=== PATIENT | male | born 1950 | race Caucasian/White ===

== ENCOUNTER → 2016-08-28 | Outpatient (CLI) | payer OTHER ==
[~2016-08-28] MED LIST: AMLO2.5T PO; HYDR-5688 PO; LISI10TA PO; PREG1CAP70 PO; TRAM-10 PO
[2016-08-28 13:59] LABS: BLOOD UREA NITROGEN 17 mg/dl (7-18); CALCIUM 9.5 mg/dl (8.5-10.1); CARBON DIOXIDE 31 mmol/L (21-32); CHLORIDE 102 mmol/L (98-107); GLUCOSE 108 mg/dl (70-99); POTASSIUM 4.6 mmol/L (3.5-5.1); SODIUM 139 mmol/L (136-145)
== END | disposition home or self-care (01) ==
LOC: C.LABMFLN 09:12
PROVIDERS: ATTEND Family Medicine
DX: G62.9 Polyneuropathy, unspecified (principal); E53.8 Deficiency of other specified B group vitamins; I10 Essential (primary) hypertension

== ENCOUNTER → 2016-12-25 | Outpatient (CLI) | payer OTHER ==
[2016-12-25 17:58] LABS: URINE APPEARANCE CLEAR (CLEAR); URINE BILIRUBIN NEG (NEG); URINE COLOR YELLOW; URINE NITRITE NEG (NEG); URINE SPECIFIC GRAVITY 1.023 (1.000-1.030); UROBILINOGEN NEG (NEG)
[2016-12-25 18:02] LABS: MANUAL MICROSCOPIC REQUIRED? NO; REVIEW REQ? NO
== END | disposition home or self-care (01) ==
LOC: C.LABMFLN 14:28
PROVIDERS: ATTEND Family Medicine
DX: R31.29 Other microscopic hematuria (principal)

== ENCOUNTER → 2017-06-04 | Outpatient (CLI) | payer OTHER ==
[2017-06-04 13:20] LABS: BLOOD UREA NITROGEN 14 mg/dl (7-18); CARBON DIOXIDE 30 mmol/L (21-32); CREATININE 1.34 mg/dl (0.60-1.40); GLUCOSE 122 mg/dl (70-99); POTASSIUM 4.3 mmol/L (3.5-5.1); SODIUM 139 mmol/L (136-145)
== END | disposition home or self-care (01) ==
LOC: C.LABMFLN 08:43
PROVIDERS: ATTEND Family Medicine
DX: I10 Essential (primary) hypertension (principal)

== ENCOUNTER 2021-05-16 09:17 | Inpatient (IN) ==
--- NOTE | 2021-04-29 10:36 | PAT Medication Instructions ---
Medication Instructions Date of Service April 29, 2021 Home Medications Medication Instructions Recorded apixaban 2.5 mg tablet 2.5 mg PO Q12H #180 tab 11/24/20 tramadol 50 mg tablet 50 mg PO Q8H PRN #180 tab 01/19/21 pregabalin 150 mg capsule 150 mg PO TID #90 cap 01/21/21 apixaban 2.5 mg tablet 2.5 mg PO Q12H tramadol 50 mg tablet 50 mg PO Q8H PRN pregabalin 150 mg capsule 150 mg PO TID amlodipine 2.5 mg tablet 2.5 mg PO QAM cholecalciferol (vitamin D3) 50 mcg (2,000 unit) tablet 50 mcg PO QAM cyanocobalamin (vitamin B-12) 500 mcg tablet 500 mcg PO QAM lisinopril 10 mg-hydrochlorothiazide 12.5 mg tablet 1 tab PO QAM vitamin B comp and C no.3 15 mg-10 mg-50 mg-5 mg-300 mg capsule (B Complex Plus Vitamin C) 1 cap PO QAM ASK your prescriber and surgeon apixaban 2.5 mg tablet 2.5 mg PO Q12H DO NOT take the morning of surgery cholecalciferol (vitamin D3) 50 mcg (2,000 unit) tablet 50 mcg PO QAM cyanocobalamin (vitamin B-12) 500 mcg tablet 500 mcg PO QAM lisinopril 10 mg-hydrochlorothiazide 12.5 mg tablet 1 tab PO QAM vitamin B comp and C no.3 15 mg-10 mg-50 mg-5 mg-300 mg capsule (B Complex Plus Vitamin C) 1 cap PO QAM Take morning of surgery With a small sip of water, OTHERWISE NOTHING TO EAT OR DRINK AFTER MIDNIGHT: tramadol 50 mg tablet 50 mg PO Q8H PRN (okay to take up to 4 hours prior to surgery if needed) pregabalin 150 mg capsule 150 mg PO TID amlodipine 2.5 mg tablet 2.5 mg PO QAM Take evening before surgery tramadol 50 mg tablet 50 mg PO Q8H PRN (if needed) pregabalin 150 mg capsule 150 mg PO TID Other Notes If you have any questions please call us at [phone] or [phone] or [phone] or [phone]
--- NOTE | 2021-05-02 13:43 | Anesthesiology Consultation ---
Date of Service May 02, 2021 Assessment & Plan (1) Encounter for pre-operative examination: Chart Review Chart Review: Acceptable Risk for Surgery (pending surgeon ordered PCP clearance 05/03/21 and preop Covid testing ) and Patient seen in Pre Admission Testing - Awaiting surgeon ordered PCP clearance 05/03/21 Per PAT appt on 05/02/21, patient denies any recent travel or large group activities. No known Covid positive exposures or Covid related symptoms. No known Covid infection in the past 90 days. Pt is NOT vaccinated for Covid. Preop Covid testing scheduled 05/12/21 = will await results. Educated on importance of self quarantining, social distancing and wearing mask in public for the patient one week prior to surgery and after Covid testing done Consults Requested Pre-Anesthesia Teaching/Discussion Notes: Instructed NPO after midnight before surgery,except medications with 15 cc of water. Medication instructions provided according to the PAT guidelines. History Surgery Operation Date: 05/16/21 11:30 Proposed Procedures p L2-S1 Revision Decompression Fusion, Spinal Cord Monitoring - Brandon Ramires DO Height/Weight Height: 5 ft 10.5 in Weight: 128.5 kg Allergies Allergy/AdvReac Type Severity Reaction Status Date / Time oxycodone [From OxyContin] Allergy Severe breathing Verified 04/27/21 10:24 issues Medications Home Medications Medication Instructions Recorded Confirmed Last Taken apixaban 2.5 mg tablet 2.5 mg PO Q12H #180 tab 11/24/20 04/27/21 Unknown tramadol 50 mg tablet 50 mg PO Q8H PRN #180 tab 01/19/21 04/27/21 Unknown pregabalin 150 mg capsule 150 mg PO TID #90 cap 01/21/21 04/27/21 Unknown amlodipine 2.5 mg tablet 2.5 mg PO QAM 04/27/21 04/27/21 Unknown cholecalciferol (vitamin D3) 50 50 mcg PO QAM 04/27/21 04/27/21 Unknown mcg (2,000 unit) tablet cyanocobalamin (vitamin B-12) 500 500 mcg PO QAM 04/27/21 04/27/21 Unknown mcg tablet lisinopril 10 1 tab PO QAM 04/27/21 04/27/21 Unknown mg-hydrochlorothiazide 12.5 mg tablet vitamin B comp and C no.3 15 mg-10 1 cap PO QAM 04/27/21 04/27/21 Unknown mg-50 mg-5 mg-300 mg capsule (B Complex Plus Vitamin C) Past Medical History Medical History AAA (abdominal aortic aneurysm) Per renal ultrasound 12/22/20- "proximal abdominal aorta is ectatic/borderline dilated with AP diameter of 3.0cm" History of kidney stones History of pulmonary 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 No device indicated per patient . Osteoarthritis Perinephric hematoma Hx perinephric hematoma 03/23 Eliquis 04/2020 (days after starting Eliquis for PE) Improving on recent imaging (02/2021) per nephro Pulmonary hypertension Pulm HTN noted on 05/04/20 ECHO (PASP >39mmg) (diagnosed with PE at the time); repeat ECHO 11/23/20 - "cannot esimated RVSP due to insufficient tricuspid regurgitant jet" Renal cyst Stage 3b chronic kidney disease Follows with Dr. Cadena Baseline creat 1.5-1.7 per nephro 03/30/21 Tinnitus Past Family History Family History Father Diabetes Stroke Sister Breast cancer Brother Cancer Other No family history of adverse response to anesthesia Past Surgical History Surgical History History of ankle surgery Rt History of back surgery History of colonoscopy History of removal of cyst S/P cervical spinal fusion x 3 S/P IVC filter 05/07/20 Dr. Millie Pandey- Infrarenal IVC filter (has since been removed) Past Anesthesia History No Hx of Anesthesia Complications and No Family Hx of Anesthesia Complications History of PONV No Hx of PONV and No Hx of Motion Sickness Social History Smoking Status: Never smoker Do You Dip or Chew Tobacco: No Hx Alcohol Use: No Hx Substance Use: No substance use type: does not use Review of Systems Hx of blood transfusion - secondary to perinephric hematoma Hx of PE 04/2020 Patient denies chest pain, shortness of breath at rest, reflux, cough, wheezing, palpitations. No hx of seizures, stroke, SD. Physical Exam Vital Signs VITALS BP 108/72 P 97 TEMP 99.0 SP02 94% RESP 16 Constitutional no acute distress ENMT Mouth: no TMJ clicking Thyromental Distance: > or= 3.5 Finger Breadths (4.0) Mallampati Class: III Missing molars Neck neck extension not limited Respiratory normal respiratory effort; no respiratory distress Auscultation: lungs clear to auscultation bilaterally; no wheezes Cardiovascular Rate/Rhythm: regular rate and regular rhythm Heart Sounds: no murmur Vessels: no carotid bruit Musculoskeletal Spine: no pain with cervical ROM Extremities: extremities normal to inspection Psychiatric Orientation: alert Lab Results Anesthesia Preop Results Results Anesthesia Widget: WBC 11.46 K/uL (4.8-10.8) H 05/02/21 Hgb 14.9 g/dL (14.0-18.0) 05/02/21 Hct 45.4 % (42-52) 05/02/21 Plt 255 K/uL (130-400) 05/02/21 Na 138 mmol/L (136-145) 05/02/21 K 4.9 mmol/L (3.5-5.1) 05/02/21 Cl 101 mmol/L (98-107) 05/02/21 CO2 30 mmol/L (21-32) 05/02/21 BUN 24 mg/dl (6-23) H 05/02/21 Creat 1.68 mg/dl (0.6-1.4) H 05/02/21 Glucose Level 96 mg/dl (70-99(Fasting)) 05/02/21 PT 10.8 Seconds (9.0-12.0) 05/02/21 PTT 31.1 Seconds (21.0-31.0) H 05/02/21 INR 1.0 (0.9-1.1) 05/02/21 Urine Color Dark Yellow 05/02/21 Urine Appearance Clear (Clear) 05/02/21 Urine pH 6.0 (4.5-7.5) 05/02/21 Urine Specific [place] 1.021 (1.000-1.030) 05/02/21 Urine Protein Negative (Negative) 05/02/21 Urine Glucose (UA) Negative (Negative) 05/02/21 Urine Ketones Negative (Negative) 05/02/21 Urine Blood Negative (Negative) 05/02/21 Urine Nitrite Negative (Negative) 05/02/21 Urine Bilirubin Negative (Negative) 05/02/21 Urine Urobilinogen Negative (Negative) 05/02/21 Urine Leukocyte Esterase Negative (Negative) 05/02/21 Blood Type O Positive 05/02/21 Antibody Screen NEGATIVE 05/02/21 Lab Comments: Elevated creatinine- CKD- follows with nephro- baseline creat 1.5-1.7 Testing Electrocardiogram Date: 10/01/20 SR at 97bpm. Borderline right axis deviation. Chest X-Ray Date: 05/02/21 Findings: + NAD Echocardiogram Date: 11/23/20 EF: 55-60% LV Function: normal RWMA: + none Other Findings: no LVH Valvular Disease: + no significant valvular disease Cannot estimate RVSP due to insufficient tricuspid regurgitant jet. Other Testing Abdomen MRI 03/01/21= Multiple cysts are seen in the right greater than left kidneys. Nonenhancing soft tissue density about the right kidney inferior pole likely reflects residual findings of the right subcapsular hematoma. Hepatic steatosis.
[~2021-05-16 09:17] MED LIST changes: +ACETAMINOPHEN 500 MG TAB PO SCH; -AMLO2.5T PO; +CeleBREX 200 MG CAP PO SCH; +GABAPENTIN 300 MG CAP PO SCH; -HYDR-5688 PO; -LISI10TA PO; +LR 15ML/HR IV SCH; -PREG1CAP70 PO; -TRAM-10 PO
--- NOTE | 2021-05-16 11:04 | History & Physical Bridge Note ---
Date of Service May 16, 2021 History & Physical Bridge Note I have examined the patient, reviewed the History & Physical and in the interval since the performance of the History & Physical I have noted the following changes of clinical significance: no changes noted
--- NOTE | 2021-05-16 11:05 | History & Physical Report ---
Date of Service May 16, 2021 Assessment & Plan (1) Neurogenic claudication due to lumbar spinal stenosis: Plan: L2-S1 revision decompression and fusion History of Present Illness Chief Complaint: Back and bilateral leg pain Primary Care Provider: Bijan Hernandez MD This is a 70-year-old male who presents with back and bilateral leg pain after failing course of nonoperative care is here for surgical intervention. Allergies Allergy/AdvReac Type Severity Reaction Status Date / Time oxycodone [From OxyContin] Allergy Severe breathing Verified 05/16/21 09:50 issues Home Medications Medication Instructions Recorded Confirmed Type apixaban 2.5 mg tablet 2.5 mg PO Q12H #180 tab 11/24/20 05/16/21 Rx tramadol 50 mg tablet 50 mg PO Q8H PRN #180 tab 01/19/21 05/16/21 Rx pregabalin 150 mg capsule 150 mg PO TID #90 cap 01/21/21 05/16/21 Rx amlodipine 2.5 mg tablet 2.5 mg PO QAM 04/27/21 05/16/21 History cholecalciferol (vitamin D3) 50 50 mcg PO QAM 04/27/21 05/16/21 History mcg (2,000 unit) tablet cyanocobalamin (vitamin B-12) 500 500 mcg PO QAM 04/27/21 05/16/21 History mcg tablet lisinopril 10 1 tab PO QAM 04/27/21 05/16/21 History mg-hydrochlorothiazide 12.5 mg tablet vitamin B comp and C no.3 15 mg-10 1 cap PO QAM 04/27/21 05/16/21 History mg-50 mg-5 mg-300 mg capsule (B Complex Plus Vitamin C) Past Med/Surg History Medical History (Updated 05/16/21 @ 11:05 by Brandon Ramires DO) AAA (abdominal aortic aneurysm) Per renal ultrasound 12/22/20- "proximal abdominal aorta is ectatic/borderline dilated with AP diameter of 3.0cm" History of kidney stones History of pulmonary embolism Dx 04/2020; 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 No device indicated per patient . Osteoarthritis Perinephric hematoma Hx perinephric hematoma 03/23 Eliquis 04/2020 (days after starting Eliquis for PE) Improving on recent imaging (02/2021) per nephro Pulmonary hypertension Pulm HTN noted on 05/04/20 ECHO (PASP >39mmg) (diagnosed with PE at the time); repeat ECHO 11/23/20 - "cannot esimated RVSP due to insufficient tricuspid regurgitant jet" Renal cyst Stage 3b chronic kidney disease Follows with Dr. Cadena Baseline creat 1.5-1.7 per nephro 03/30/21 Tinnitus Surgical History History of ankle surgery Rt History of back surgery History of colonoscopy History of removal of cyst S/P cervical spinal fusion x 3 S/P IVC filter 05/07/20 Dr. 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
[2021-05-16] MEDS ORDERED: ATROPINE SULFATE 0.1 MG/ML 10ML SYR IV PRN (11:10)
[2021-05-16] MEDS ORDERED: ONDANSETRON INJ 2 MG/ML 2 ML VIAL IV PRN ×2 (11:10→16:06)
[2021-05-16] MEDS ORDERED: HYDROmorphone INJ 2 MG/ML SYR/VIAL IV PRN (11:10)
[2021-05-16] MEDS ORDERED: ePHEDrine sulfate 50 MG/ML AMP IV PRN (11:10)
[2021-05-16] MEDS ORDERED: PROPOFOL IV EMULSION 10 MG/ML 20 ML VIAL IV ONE (11:28)
[2021-05-16] MEDS ORDERED: ceFAZolin 330 MG/ML 1 GM VIAL ONE (11:28)
[2021-05-16] MEDS ORDERED: DEXAMETHASONE SOD INJ 4 MG/ML VIAL ONE (11:28)
[2021-05-16] MEDS ORDERED: ROCURONIUM BROMIDE 10 MG/ML 5 ML VIAL IV ONE ×6 (11:28→13:37)
[2021-05-16] MEDS ORDERED: MIDAZOLAM HCL 1 MG/ML 2ML VIAL ONE (11:28)
[2021-05-16] MEDS ORDERED: ONDANSETRON INJ 2 MG/ML 2 ML VIAL ONE (11:28)
[2021-05-16] MEDS ORDERED: fentaNYL citrate 100 MCG/2 ML VIAL ONE (11:28)
[2021-05-16] MEDS ORDERED: EPINEPHrine INJ 1 MG/ML AMP ONE (11:32)
[2021-05-16] MEDS ORDERED: BUPIVACAINE 0.5 % 5 MG/1 ML MPF 30ML VIAL ONE (11:32)
[2021-05-16] MEDS ORDERED: FLOSEAL HEMOSTATIC MATRIX 10ML TOP ONE (12:37)
[2021-05-16] MEDS ORDERED: HYDROmorphone INJ 2 MG/ML SYR/VIAL ONE (12:51)
[2021-05-16] MEDS ORDERED: GLYCOPYRROLATE 0.2 MG/ML VIAL ONE (13:36)
[2021-05-16] MEDS ORDERED: NEOSTIGMINE METHYLSULFATE 1 MG/ML 10ML VIAL ONE (13:36)
--- NOTE | 2021-05-16 14:33 | Operative Report ---
Post Operative Report Pre & Post Diagnosis Operation Date: 05/16/21 11:15 Pre-Op Diagnosis: Spinal Stenosis Lumbar Region Post-Op Diagnosis: Spinal Stenosis Lumbar Region I identified the patient and participated in the time-out.: Yes Procedure Operation Date: 05/16/21 11:15 Actual Procedures #1 lumbar decompression L2-L3, L3-L4, L4-L5 and L5-S1. #2 posterior spinal fusion L2-S1. #3 placement posterior segmental instrumentation L2-S1. #4 interbody fusion L3-L4. #5 placement of titanium 13 x 26 mm cage at L3-L4. #6 placement locally harvested morselized autograft in the posterior gutters. #7 placement infuse collagen sponge, master graft in the posterior lateral gutters and I factor in the interbody space. Surgeon Brandon Ramires, DO Counselor Dormitory Sherice Virgen Estimated Blood Loss 700 Findings See Below Patient is 5 foot 10 inches tall weighing over 129 kg with a BMI in excess of 40. The patient's body habitus did contribute to significant technical difficulty requiring her deepest retractors longus instruments in order to perform his procedure. This at least 50% increased operative time. Specimens None Indications This is a 70-year-old male who presents with above-mentioned diagnosis after failing course of nonoperative care is here for the above-mentioned procedure. Description of Procedure Patient was met with identified informed consent obtained. Patient was then taken to the operative suite underwent ablation placed in a prone position on the [facility] top Missael frame. All bony prominences well-padded eyes inspected to ensure no external pressure placed upon the. This point the lumbar spine was prepped and draped in a sterile fashion. Sharp dissection with the assistance of Bovie cautery was performed down to and exposing the lamina and transverse processes of L2 L3-L4-L5 and sacral ala bilaterally. From caudal to cephalad fashion revision decompression at L5 L4 L3 and L2 was performed including medial facetectomies and foraminotomies addressing severe spinal stenosis most impressive at the L3-L4 level. Pedicle screws then placed in L2- L3 L4-5 and S1 levels bilaterally. The appropriate sized sana placed. Bilateral transforaminal portion of right complete discectomy of L3-L4 was performed endplates curetted to subcortical being bone and a 13 x 26 mm titanium cage filled with I factor tapped in position. The rods then locked in final position bilaterally. The transverse processes of L2-L3 L4-5 and sacral ala burred to subcortical bleeding bone. Infuse collagen sponge mass graft local autograft was placed in the posterior gutters. 15 round VALARIE drain inserted. The incision was then closed with 1 Vicryl in the fascia 2-0 Vicryl subcutaneously and 4 Monocryl for final skin closure. Steri-Strip sterile dressing was placed. Patient will continue PACU stable condition. Please note spinal combined was utilized at the procedure no changes noted. Lastly Sherice Virgen was present at the entire surgery and while the patient positioning complex portions of the surgery and final skin closure. I attest to the content of the Intraoperative Record and any orders documented therein. Any exceptions are noted below.
--- NOTE | 2021-05-16 14:43 | Fluoroscopy Report ---
FL lumbar spine 2-3V HISTORY: 70 years-old Male L2-S1 DFI chronic low back pain COMPARISON: None. TECHNIQUE: 4 spot fluoroscopic images of the lumbar spine were obtained utilizing 41.5 seconds fluoro scopy time FINDINGS: Posterior interbody sana and screw fusion hardware is noted at what appears to be the L2-S1 levels. Di scectomy changes are noted appears to be the L3-L4 intervertebral disc space. A surgical sponge proje cts over the mid sacrum. The hardware appears intact. IMPRESSION: Fluoroscopic assistance as above. ACT 112: Negative or not required by law. The above report was generated using voice recognition software. It may contain grammatical, syntax o r spelling errors. Electronically signed by: Jose Luis Mistry M.D. 05/16/2021 2:42 PM
[2021-05-16] MEDS: fentaNYL citrate 100 MCG/2 ML VIAL IV PRN ×2 (15:13→15:19)
--- NOTE | 2021-05-16 15:38 | Anesthesiology Progress Note ---
Date of Service May 16, 2021 Anesthesia Post Procedure Vital Signs Vital Signs: Temp Pulse Pulse Resp BP BP Pulse Ox 05/16/21 15:30 36.2 C L 86 12 103/67 99 05/16/21 15:20 83 13 103/66 100 05/16/21 15:10 81 12 113/68 97 05/16/21 15:00 87 12 91/60 L 99 05/16/21 14:54 36.0 C L 92 H 14 103/65 98 05/16/21 09:43 36.8 C 97 H 20 117/85 96 Pain Intensity Right Lower Back: Pain Intensity: 2 Back: Pain Intensity: 4 Transfer of Care Handoff Completed per policy Notes Mental Status: alert / awake / arousable and participated in evaluation Patient Amnestic to Procedure: Yes Nausea / Vomiting: adequately controlled Pain: adequately controlled Airway Patency, RR, SpO2: stable & adequate BP & HR: stable & adequate Hydration State: stable & adequate Anesthetic Complications: no major complications apparent and Pt Satisfied with anesthetic care
[2021-05-16] MEDS ORDERED: DO NOT ADMINISTER PNEUMOCOCCAL VACCINE PRN (16:06)
[2021-05-16] MEDS ORDERED: hydrOXYzine HCl 25 MG TAB PO PRN (16:06)
[2021-05-16] MEDS ORDERED: HYDROmorphone INJ 1 MG/ML SYRINGE IV PRN (16:06)
[2021-05-16] MEDS ORDERED: NALOXONE HCL 0.4 MG/1 ML VIAL/CARP IV PRN (16:06)
[2021-05-16] MEDS ORDERED: FAMOTIDINE 20 MG TAB PO PRN (16:06)
[2021-05-16] MEDS ORDERED: HYDROmorphone INJ 0.5 MG/0.5 ML SYR IV PRN (16:06)
[2021-05-16] MEDS ORDERED: METOCLOPRAMIDE HCL INJ 5 MG/ML 2 ML VIAL IV PRN (16:06)
[2021-05-16] MEDS ORDERED: DO NOT ADMINISTER FLU VACCINE PRN (16:06)
[2021-05-16] MEDS ORDERED: ACETAMINOPHEN 1,000 MG/100 ML VIAL IV PRN (16:06)
[2021-05-16] MEDS ORDERED: bisacodyL 10 MG SUPP PR PRN (16:06)
[2021-05-16] MEDS ORDERED: SOD PHOSPHATE/SOD BIPHOSPHATE ENEMA 132 ML BTL PR PRN (16:06)
[2021-05-16] MEDS ORDERED: MAGNESIUM HYDROXIDE SUSP 30 ML UDC PO PRN (16:06)
[2021-05-16] MEDS ORDERED: ACETAMINOPHEN 500 MG TAB PO PRN (16:06)
[2021-05-16] MEDS ORDERED: HYDROCODONE/ACETAMOPHEN 5/325MG TAB PO PRN (16:06)
[2021-05-16] MEDS ORDERED: LORazepam 2 MG/1 ML VIAL IV PRN (16:06)
[2021-05-16] MEDS ORDERED: diphenhydrAMINE Capsule 25 MG CAP PO PRN (16:06)
[2021-05-16] MEDS ORDERED: ALUMINUM/MAGNESIUM SUSP 30 ML UDC PO PRN (16:06)
[2021-05-16] MEDS ORDERED: ONDANSETRON 4 MG OD TAB PO PRN (16:06)
[2021-05-16] MEDS ORDERED: LORazepam 0.5 MG TAB PO PRN (16:06)
[2021-05-16] MEDS ORDERED: PROMETHAZINE HCL 12.5 MG in SODIUM CHLORIDE 0.9% 50 ML IV PRN (16:06)
--- NOTE | 2021-05-16 17:07 | Hospitalist Consultation ---
Date of Consultation May 16, 2021 Assessment & Plan (1) Neurogenic claudication due to lumbar spinal stenosis: L2 S1 revision decompression fusion Dr. Ramires 05/16/2021 patient will have his VALARIE drain monitored by Dr. Ramires pain control also per Dr. Ramires PT OT also (2) Hypertension, benign: Patient typically takes amlodipine low-dose and lisinopril Prill hydrochlorothiazide. His blood pressure is low postoperatively we will delay the start of these medications until the . If blood pressure does rise on 05/17 we will use as needed medications to fill in (3) History of pulmonary embolism: Patient has treated a acute pulmonary believes him with 6 months of therapeutic dosing of apixaban now he is kept on therapy with a more preventative dose. His primary care physician wishes to resume this when hemostasis is felt to be appropriate by primary team in 48 to 72 hours. 2.5 twice daily of apixaban (4) CKD (chronic kidney disease) stage 3, GFR 30-59 ml/min: Patient suffers from chronic kidney disease this has been stable preoperatively certainly with his volume shifts we will watch this in the postoperative setting Patient did have a perinephric hematoma after starting his anticoagulation which has been resolving over time (5) DVT prophylaxis: Given his history we will resume his chemoprophylaxis is soon as possible however will use external means until his apixaban is restarted Patient does not use any noninvasive positive pressure device for sleep apnea. Patient does not take any medications for prediabetes nor follow a carbohydrate conservative diet. Patient has a history of abdominal aortic aneurysm which may just be aortic ectasia History of Present Illness Attending Physician: Brandon Ramires DO History of Present Illness 70-year-old male underwent L2 S1 root revision decompression fusion by Dr. Ramires on 05/16/2021. Preoperatively he was seen by his family doctor and felt he was wrist optimized for surgery. Patient does suffer from prediabetes which is diet controlled sleep apnea while at home device hypertension and pulmonary hypertension. He is chronically on apixaban after having pulmonary believes him is after cervical spinal surgery. Patient has chronic longstanding neuropathy of his feet for which he takes pregabalin. Postoperatively he was comfortable his blood pressure was slightly low his pain was in good control only at the operative site his lower leg pain which was the main cause of his need for surgery had completely resolved. Allergies Allergy/AdvReac Type Severity Reaction Status Date / Time oxycodone [From OxyContin] Allergy Severe breathing Verified 05/16/21 09:50 issues Home Medications Medication Instructions Recorded Confirmed Type apixaban 2.5 mg tablet 2.5 mg PO Q12H #180 tab 11/24/20 05/16/21 Rx tramadol 50 mg tablet 50 mg PO Q8H PRN #180 tab 01/19/21 05/16/21 Rx pregabalin 150 mg capsule 150 mg PO TID #90 cap 01/21/21 05/16/21 Rx amlodipine 2.5 mg tablet 2.5 mg PO QAM 04/27/21 05/16/21 History cholecalciferol (vitamin D3) 50 50 mcg PO QAM 04/27/21 05/16/21 History mcg (2,000 unit) tablet cyanocobalamin (vitamin B-12) 500 500 mcg PO QAM 04/27/21 05/16/21 History mcg tablet lisinopril 10 1 tab PO QAM 04/27/21 05/16/21 History mg-hydrochlorothiazide 12.5 mg tablet vitamin B comp and C no.3 15 mg-10 1 cap PO QAM 04/27/21 05/16/21 History mg-50 mg-5 mg-300 mg capsule (B Complex Plus Vitamin C) Patient History Medical History (Updated 05/16/21 @ 17:04 by Pedro Meneses MD) AAA (abdominal aortic aneurysm) Per renal ultrasound 12/22/20- "proximal abdominal aorta is ectatic/borderline dilated with AP diameter of 3.0cm" History of kidney stones History of pulmonary embolism Dx 04/2020; 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 No device indicated per patient . Osteoarthritis Perinephric hematoma Hx perinephric hematoma 03/23 Eliquis 04/2020 (days after starting Eliquis for PE) Improving on recent imaging (02/2021) per nephro Pulmonary hypertension Pulm HTN noted on 05/04/20 ECHO (PASP >39mmg) (diagnosed with PE at the time); repeat ECHO 11/23/20 - "cannot esimated RVSP due to insufficient tricuspid regurgitant jet" Renal cyst Stage 3b chronic kidney disease Follows with Dr. Cadena Baseline creat 1.5-1.7 per nephro 03/30/21 Tinnitus Surgical History History of ankle surgery Rt History of back surgery History of colonoscopy History of removal of cyst S/P cervical spinal fusion x 3 S/P IVC filter 05/07/20 Dr. 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 Beliefs That Will Affect Care: None marital status: / Current Living Situation: Alone Feels Safe at Home: Yes Safety Concerns: Feels Safe At This Time Childhood Exposure to Second-Hand Smoke: No Seatbelt Use: always Sunscreen Use: No Assistive Devices: Glasses Review of Systems Review of Systems: Mild distress and fatigue only back pain is at the surgical site is of a VALARIE draining no headache, no visual changes no speech or swallowing issues no chest pain, pressure or palpitations no shortness of breath, cough or wheezes no abdominal pain, nausea or vomiting, diarrhea or constipation no dysuria, hematuria or frequency no focal joint pain or swelling Central lower lumbar nonradicular back pain Operative wound is dressed and there is a VALARIE that is draining serosanguineous fluid no focal signs of weakness patient has prehospital bilateral lower extremity neuropathy to about his mid lower leg this is at his typical usual state no complaints of anxiety or depression.. Physical Exam Physical Exam: The patient appeared well nourished and normally developed. Vital signs as documented. Head exam is normocephalic atraumatic Neck is without JVD, thyromegaly, or carotid bruits. Lungs are clear to auscultation, no focal loss of breath sounds Cardiac exam, Rhythm is regular.. No murmurs, rubs or gallops. Abdominal exam reveals normal bowel sounds, soft non tender, no masses Extremities are nonedematous and both pedal pulses are present Neurologic exam is alert and oriented, no focal loss of strength or referral neuropathy is present Skin is without bruises or rashes exception of the operative site which is dressed and I cannot visualize it consists difficult to roll the patient postoperatively Psychologically is without concerns for anxiety or depression.. Results & Data Results & Data ([facility]) Vital Signs (Past 12 Hours) Vital Signs Temp Pulse Pulse Resp BP BP Pulse Ox 05/16/21 16:31 97.5 F L 90 16 108/68 95 05/16/21 16:00 97.9 F 82 16 107/68 97 05/16/21 15:50 83 13 95/59 L 95 05/16/21 15:40 78 12 107/65 99 05/16/21 15:30 97.2 F L 86 12 103/67 99 05/16/21 15:20 83 13 103/66 100 05/16/21 15:10 81 12 113/68 97 05/16/21 15:00 87 12 91/60 L 99 05/16/21 14:54 96.8 F L 92 H 14 103/65 98 05/16/21 09:43 98.2 F 97 H 20 117/85 96 PG Care Time/CCT Total # of Minutes Spent Total Time Spent with Patient: Total time spent is greater than 50% in coordination of care (as documented) at patient's floor/unit and/or counseling patient: Coding Level of Care Code 43800 Inpt Consult Level 3 Diagnoses Hypertension, benign I10 History of pulmonary embolism Z86.711 CKD (chronic kidney disease) stage 3, GFR 30-59 ml/min N18.30 Neurogenic claudication due to lumbar spinal stenosis M48.062 DVT prophylaxis Z29.9
[2021-05-16] MEDS: LACTATED RINGER'S 1,000 ML IV SCH (19:12)
[2021-05-16] MEDS: traMADol HCL 50 MG TABLET PO PRN (20:54)
[2021-05-16] MEDS: PREGABALIN 150 MG CAP PO SCH (20:54)
[2021-05-16] MEDS: ceFAZolin 2000MG 2,000 MG/15 ML SYR IV SCH (20:54)
[2021-05-16] MEDS: DOCUSATE SODIUM/SENNA 50/8.6MG TAB PO SCH (20:57)
[2021-05-17] MEDS: LACTATED RINGER'S 1,000 ML IV SCH ×2 (01:06→07:54)
[2021-05-17] MEDS: ceFAZolin 2000MG 2,000 MG/15 ML SYR IV SCH (05:38)
[2021-05-17] MEDS: POLYETHYLENE (MIRALAX) 17 GM PACK PO SCH ×3 (05:39→17:13)
[2021-05-17 06:55] LABS: Basophils # (auto) 0.01 K/uL (0-0.2); Basophils % (auto) 0.1 %; Hematocrit (blood only) 33.2 % (42-52); Hemoglobin 11.1 g/dL (14.0-18.0); Immature Granulocytes # (auto) 0.04 K/uL (0.00-0.02); Immature Granulocytes % (auto) 0.3 %; Lymphocytes # (auto) 1.14 K/uL (1.2-3.4); Lymphocytes % (auto) 7.8 %; Mean Corpuscular Hemoglobin 31.6 pg (25-34); Mean Corpuscular Hgb Conc 33.4 g/dL (32-36); Mean Corpuscular Volume 94.6 fL (80-100); Mean Platelet Volume 10.1 fL (7.4-10.4); Monocytes # (auto) 0.75 K/uL (0.11-0.59); Monocytes % (auto) 5.2 %; Neutrophils # (auto) 12.62 K/uL (1.4-6.5); Neutrophils % (auto) 86.6 %; Platelet Count 234 K/uL (130-400); RDW Coefficient of Variation 13.8 % (11.5-14.5); RDW Standard Deviation 47.3 fL (36.4-46.3); Red Blood Count 3.51 M/uL (4.7-6.1); White Blood Count 14.56 K/uL (4.8-10.8)
[2021-05-17 07:13] LABS: BUN Creatinine Ratio 15.3 (10-20); Calcium 8.5 mg/dl (8.5-10.1); Creatinine Clr Calc Pharmacy 60.5 ml/min; Est GFR (African American) 51.4 ml/min; Est GFR (Non-African American) 44.3 ml/min; Potassium 4.9 mmol/L (3.5-5.1)
[2021-05-17] MEDS: dexAMETHasone 6 MG in SYRINGE 0 ML IV SCH (08:08)
[2021-05-17] MEDS: VITAMIN B COMPLEX TAB PO SCH (08:09)
[2021-05-17] MEDS: ASCORBIC ACID 500 MG TAB PO SCH (08:09)
[2021-05-17] MEDS: CYANOCOBALAMIN (B-12) 500 MCG TABLET PO SCH (08:09)
[2021-05-17] MEDS: CHOLECALCIFEROL 1,000 UNITS 25 MCG TAB PO SCH (08:09)
[2021-05-17] MEDS: PREGABALIN 150 MG CAP PO SCH ×2 (08:11→20:07)
[2021-05-17] MEDS ORDERED: amLODIPine BESYLATE 5 MG TAB PO SCH (09:00)
[2021-05-17] MEDS ORDERED: LISINOPRIL/HCTZ 10/12.5MG TAB PO SCH (09:00)
[2021-05-17] MEDS ORDERED: NON-FORMULARY MEDICATION (Vitamin B Comp And C No.3 [B Complex Plus Vitamin C] 15-10-50-5- PO SCH (09:00)
[2021-05-17] MEDS ORDERED: SODIUM CHLORIDE 0.9% 1000ML 1,000 ML IV SCH (11:00)
--- NOTE | 2021-05-17 11:43 | Orthopedic Progress Note ---
Date of Service May 17, 2021 Assessment & Plan (1) Neurogenic claudication due to lumbar spinal stenosis: Plan: At this time we will continue physical therapy monitor his VALARIE output anticipate discharge home the next few days. We did discussed restarting Eliquis. He has been on this for over a year for a PE. 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 Otherwise he is not necessarily required to be on this medication. This point he prefer to stay off of it. Admission and Anticipated Discharge Date Admission Date: May 16, 2021 Subjective Back pain is controlled leg symptoms markedly improved Physical Exam Physical Exam: On exam he is in the chair at the bedside. Is good strength testing. Appears comfortable. Results & Data ([facility]) Vital Signs (Past 12 Hours) Vital Signs Temp Pulse Resp BP Pulse Ox 05/17/21 07:06 36.5 C 103 H 16 99/62 L 96 05/17/21 04:00 36.8 C 102 H 18 100/64 99
--- NOTE | 2021-05-17 14:32 | Hospitalist Progress Note ---
Date of Service May 17, 2021 Assessment & Plan (1) Neurogenic claudication due to lumbar spinal stenosis: Plan: L2 S1 revision decompression fusion Dr. Ramires VALARIE drain monitored by Dr. Ramires Recommend postoperative pain control, PT/OT, incentive spirometryall at the discretion of primary team Recommend removal of Garcia to encourage ambulation (2) Hypotension: Plan: BP slightly low this morning at 99/62 but patient asymptomatic Hold antihypertensive medications (lisinopril/HCTZ, Norvasc) Initiate gentle IV hydration Follow BP closely (3) Leukocytosis: Plan: 14.56likely steroid-induced (4) Hypertension, benign: Plan: Holding antihypertensive agents (lisinopril/HCTZ, Norvasc) as outlined above due to marginal hypotension (5) History of pulmonary embolism: Plan: Treated for acute PE with treatment dose Eliquis. Has now been on prevention dosing given this was an unprovoked event Recommend resumption of Eliquis JOSSELIN when hemostasis is felt to be appropriate by primary team For now, recommend SCDs and ambulation (6) CKD (chronic kidney disease) stage 3, GFR 30-59 ml/min: Plan: Patient did have a perinephric hematoma after starting his anticoagulation which has been resolving over time Creatinine 1.4-1.7 at baseline. Currently 1.5 (7) DVT prophylaxis: Plan: Given his history we will resume his chemoprophylaxis is soon as possible however will use external means until his apixaban is restarted Patient does not use any noninvasive positive pressure device for sleep apnea. Patient does not take any medications for prediabetes nor follow a carbohydrate conservative diet. Patient has a history of abdominal aortic aneurysm which may just be aortic ectasia Plan: We will continue to follow. Thank you for allowing us to participate in the care of this patient Admission and Anticipated Discharge Date Admission Date: May 16, 2021 Subjective Patient seen on daily rounds today. Vocalizes no complaints or concerns. Pain is adequately controlled. Tolerating pain medication without ill effects. Denies fevers, chills, chest pain, shortness of breath, abdominal pain, nausea or vomiting. Nursing voices no complaints or concerns. Patient slightly hypotensive this morning (99/62). He is ordered lisinopril/HCTZ and amlodipineneither of these have been given yet. He denies dizziness, lightheadedness, near-syncope or syncope. Review of Systems Review of Systems: All systems reviewed and are unremarkable except as noted in HPI and below Denies fevers, chills, headache, nasal congestion, sore throat, cough, chest pain, shortness of breath, palpitations, orthopnea, PND, abdominal pain, nausea, vomiting, diarrhea, constipation, dysuria, hematuria, frequency, back pain, joint pain or swelling, easy bruising or bleeding, skin lesions or rashes. Physical Exam Physical Exam: General: Resting comfortably in his hospital bed. NAD. HEENT: Head is AT/NC. Buccal mucosa is moist and pink Neck: No JVD. Negative hepatojugular reflex Cardiac: RRR but distant. Likely due to habitus Lungs: CTA without W/R/R Abdomen: Normoactive X4. Soft and nontender in all quadrants. Extremities: No peripheral clubbing cyanosis or edema. VALARIE drain noted to the back. Surgical dressing dry and intact. Neurovascular intact to the lower extremities bilaterally. Neuro: A&O X4. Cranial nerves II through XII are grossly intact. No focal neuro deficits Skin: No obvious skin lesions or rashes Psych: Appropriate affect. Pleasant and cooperative Results & Data Results & Data ([facility]) Vital Signs (Past 12 Hours) Vital Signs Temp Pulse Resp BP Pulse Ox 05/17/21 11:21 36.7 C 103 H 16 107/70 94 05/17/21 07:06 36.5 C 103 H 16 99/62 L 96 05/17/21 04:00 36.8 C 102 H 18 100/64 99 Laboratory Results 05/17/21 06:15 05/17/21 06:15 PG Care Time/CCT Total # of Minutes Spent Total Time Spent with Patient: Total time spent is greater than 50% in coordination of care (as documented) at patient's floor/unit and/or counseling patient: Coding Level of Care Code 09477 Inpt Consult Level 4 Diagnoses Neurogenic claudication due to lumbar spinal stenosis M48.062 Hypertension, benign I10 History of pulmonary embolism Z86.711 CKD (chronic kidney disease) stage 3, GFR 30-59 ml/min N18.30 DVT prophylaxis Z29.9 Hypotension I95.9 Leukocytosis D72.829
[2021-05-17] MEDS: DOCUSATE SODIUM/SENNA 50/8.6MG TAB PO SCH (20:07)
[2021-05-17] MEDS: traMADol HCL 50 MG TABLET PO PRN (20:07)
[2021-05-18] MEDS: POLYETHYLENE (MIRALAX) 17 GM PACK PO SCH ×2 (00:26→06:06)
[2021-05-18 06:47] LABS: Hematocrit (blood only) 32.2 % (42-52); Hemoglobin 10.7 g/dL (14.0-18.0); Mean Corpuscular Hemoglobin 31.2 pg (25-34); Mean Corpuscular Hgb Conc 33.2 g/dL (32-36); Mean Corpuscular Volume 93.9 fL (80-100); Platelet Count 203 K/uL (130-400); RDW Coefficient of Variation 13.9 % (11.5-14.5); Red Blood Count 3.43 M/uL (4.7-6.1); White Blood Count 12.37 K/uL (4.8-10.8)
[2021-05-18 07:17] LABS: BUN Creatinine Ratio 23.9 (10-20); Calcium 8.2 mg/dl (8.5-10.1); Creatinine Clr Calc Pharmacy 70.9 ml/min; Est GFR (African American) 62.2 ml/min; Est GFR (Non-African American) 53.7 ml/min; Magnesium 2.2 mg/dl (1.7-2.4); Potassium 4.6 mmol/L (3.5-5.1)
[2021-05-18] MEDS: ASCORBIC ACID 500 MG TAB PO SCH (08:05)
[2021-05-18] MEDS: CHOLECALCIFEROL 1,000 UNITS 25 MCG TAB PO SCH (08:05)
[2021-05-18] MEDS: VITAMIN B COMPLEX TAB PO SCH (08:05)
[2021-05-18] MEDS: CYANOCOBALAMIN (B-12) 500 MCG TABLET PO SCH (08:05)
[2021-05-18] MEDS: PREGABALIN 150 MG CAP PO SCH ×2 (08:06→20:13)
[2021-05-18] MEDS: dexAMETHasone 6 MG in SYRINGE 0 ML IV SCH (08:06)
--- NOTE | 2021-05-18 13:29 | Orthopedic Progress Note ---
Date of Service May 18, 2021 Assessment & Plan (1) Neurogenic claudication due to lumbar spinal stenosis: Plan: This time continue physical therapy monitor his VALARIE output hopefully discharge home tomorrow. Admission and Anticipated Discharge Date Admission Date: May 16, 2021 Subjective Back pain is controlled leg pain Physical Exam Physical Exam: Patient's in bed. He is comfortable. Is excellent strength testing. Results & Data ([facility]) Vital Signs (Past 12 Hours) Vital Signs Temp Pulse Resp BP Pulse Ox 05/18/21 07:13 36.5 C 89 16 124/79 98
--- NOTE | 2021-05-18 16:29 | Hospitalist Progress Note ---
Date of Service May 18, 2021 Assessment & Plan (1) Neurogenic claudication due to lumbar spinal stenosis: Plan: 20L2 S1 revision decompression fusion Dr. Ramires VALARIE drain monitored by Dr. Ramires. Total output of 925 cc. EBL, 600 cc Recommend postoperative pain control, PT/OT, incentive spirometryall at the discretion of primary team Recommend removal of Garcia to encourage ambulation (2) Acute blood loss anemia: Plan: Preoperative hemoglobin 14.9. Hemoglobin today is 10.7. Suspect mostly related to acute blood loss anemia in the postsurgical state VALARIE drain Total output of 925 cc. EBL, 600 cc Will start iron supplementation. Recommend continuation of this X 30 days Patient does take Eliquis which has been on hold. Once adequate hemostasis has been achieved, would encourage resumption of this given history of unprovoked PE in the past. There may also be a delusional component to his anemia as he did receive IV hydration overnight given the hypotension (3) Hypotension: Plan: BP slightly low on 05/17 at 99/62 but patient asymptomatic Held antihypertensive medications (lisinopril/HCTZ, Norvasc) Gentle hydrated with IV hydration BP improved (127/78) can likely resume antihypertensive agents in the am (4) Leukocytosis: Plan: 14.56likely steroid-induced--> now down to 12.37 no s/s infection (5) Hypertension, benign: Plan: Holding antihypertensive agents (lisinopril/HCTZ, Norvasc) as outlined above due to marginal hypotension (6) History of pulmonary embolism: Plan: Treated for acute PE with treatment dose Eliquis. Has now been on prevention dosing given this was an unprovoked event Recommend resumption of Eliquis JOSSELIN when hemostasis is felt to be appropriate by primary team For now, recommend SCDs and ambulation Did discuss this in great detail with Dr. Ramires. Patient reports that he was told by the anticoagulation clinic that he no longer needs to be on Eliquis. I find this hard to believe given his PE was an unprovoked PE in the past. He is at increased risk of PE in the postsurgical setting thus would advise resumption of anticoagulation therapy as soon as adequate hemostasis achieved. Can follow- up with the anticoagulation clinic. Once they feel that he is safe to be taken off of his anticoagulation, they can do so. I suspect they will likely will obtain a hypercoagulable panel but to do so and get adequate results, he needs to be off of Eliquis. This will be at the discretion of Dr. Inman (7) CKD (chronic kidney disease) stage 3, GFR 30-59 ml/min: Plan: Patient did have a perinephric hematoma after starting his anticoagulation which has been resolving over time Creatinine 1.4-1.7 at baseline. Currently 1.37 (8) DVT prophylaxis: Plan: Given his history we will resume his chemoprophylaxis is soon as possible however will use external means until his apixaban is restarted Patient does not use any noninvasive positive pressure device for sleep apnea. Patient does not take any medications for prediabetes nor follow a carbohydrate conservative diet. Patient has a history of abdominal aortic aneurysm which may just be aortic ectasia Plan: We will sign off on this patient. He is medically stable for discharge once cleared by primary team. Please do not hesitate to reconsult should a problem arise. Thank you for allowing us to participate in the care of this patient. Admission and Anticipated Discharge Date Admission Date: May 16, 2021 Subjective Patient seen on daily rounds today. BP better today. Denies dizziness/lightheadedness. Pain is adequately controlled. Tolerating pain medication without ill effects. Denies chest pain, shortness of breath, abdominal pain, nausea or vomiting. Hemoglobin has dropped to 10.7. Preoperatively was 14.9. There is still a great amount of drainage in the VALARIE drain. Review of Systems Review of Systems: All systems reviewed and are unremarkable except as noted in HPI and below Denies fevers, chills, headache, nasal congestion, sore throat, cough, chest pain, shortness of breath, palpitations, orthopnea, PND, abdominal pain, nausea, vomiting, diarrhea, constipation, dysuria, hematuria, frequency, back pain, joint pain or swelling, easy bruising or bleeding, skin lesions or rashes. Physical Exam Physical Exam: General: Resting comfortably in his hospital bed. NAD. HEENT: Head is AT/NC. Buccal mucosa is moist and pink Neck: No JVD. Negative hepatojugular reflex Cardiac: RRR but distant. Likely due to habitus Lungs: CTA without W/R/R Abdomen: Normoactive X4. Soft and nontender in all quadrants. Extremities: No peripheral clubbing cyanosis or edema. VALARIE drain noted to the back. Surgical dressing dry and intact. Neurovascular intact to the lower e xtremities bilaterally. Neuro: A&O X4. Cranial nerves II through XII are grossly intact. No focal neuro deficits Skin: No obvious skin lesions or rashes Psych: Appropriate affect. Pleasant and cooperative Results & Data Results & Data ([facility]) Vital Signs (Past 12 Hours) Vital Signs Temp Pulse Resp BP Pulse Ox 05/18/21 14:49 37 C 93 H 16 127/78 98 05/18/21 07:13 36.5 C 89 16 124/79 98 Laboratory Results 05/18/21 06:09 05/18/21 06:09 PG Care Time/CCT Total # of Minutes Spent Total Time Spent with Patient: Total time spent is greater than 50% in coordination of care (as documented) at patient's floor/unit and/or counseling patient: Coding Level of Care Code 20832 Inpt Consult Level 4 Diagnoses Neurogenic claudication due to lumbar spinal stenosis M48.062 Hypotension I95.9 Leukocytosis D72.829 Hypertension, benign I10 History of pulmonary embolism Z86.711 CKD (chronic kidney disease) stage 3, GFR 30-59 ml/min N18.30 DVT prophylaxis Z29.9 Acute blood loss anemia D62
[2021-05-18] MEDS: DOCUSATE SODIUM/SENNA 50/8.6MG TAB PO SCH (20:00)
[2021-05-18] MEDS: traMADol HCL 50 MG TABLET PO PRN (20:13)
--- NOTE | 2021-05-19 08:06 | Discharge Summary ---
Date of Service May 19, 2021 Admission HPI Per Admitting Provider This is a 70-year-old male who presents with back and bilateral leg pain after failing course of nonoperative care is here for surgical intervention. Principal Diagnosis Lumbar spinal stenosis with neurogenic claudication Discharge Data Allergies Allergy/AdvReac Type Severity Reaction Status Date / Time oxycodone [From OxyContin] Allergy Severe breathing Verified 05/16/21 09:50 issues Consultations 05/16/21 16:40 Consult Hospitalist Routine Procedures Performed Operation Date: 05/16/21 11:15 Actual Procedures p L2-S1 Revision Decompression Fusion, Spinal Cord Monitoring(Not Applicable) - Brandon Ramires DO Ordered Studies 05/16/21 11:15 FL lumbar spine 2-3V Routine Hospital Course (1) Neurogenic claudication due to lumbar spinal stenosis: Patient underwent multilevel lumbar decompression fusion tolerated this well was taken to orthopedic floor postoperative. Postop day 1 is up and ambulating progressive postop day #2 on postop day #3 VALARIE drainage decreased appropriately. Pain well controlled. Excellent strength testing. Subsequently discharged home. Discharge orders instructions from the chart for further review. Total Time Total Time Spent Total Time Spent (In Minutes): 20 minutes Discharge Plan Discharge Items Patient Disposition: Home - Self-Care Reason For Visit: Spinal Stenosis Lumbar Region Discharge Diagnosis: Lumbar spinal stenosis with radiculopathy Activity: As commented below Non-emergency contact: Primary Care Provider Call non-emergency contact if: you have any medication questions Follow-up/Referrals: Bijan Hernandez MD [Primary Care Provider] - Brandon Ramires DO [Surgeon] - 05/31/21 9:00 am (APPT WITH EDU ANDREWS) Diet: Regular Addtl Attending Provider Instructions: ACTIVITY RECOMMENDATIONS: SELF CARE INSTRUCTIONS AFTER THORACIC/LUMBAR FUSIONS 1. You may walk to your tolerance. It is good exercise for your legs and back. Expect some back and intermittent leg aches and pains. 2. You may perform "counter-top" level activities (make a sandwich, don with a project, etc.). 3. No bending or lifting of more than 10 pounds or back twisting of any nature (roll like a log when turning in bed). 4. You may ride in a car for 20-30 minutes at a time. No driving until after your first visit with your doctor. 5. Frequent changes of position and restricting sitting to 30 minutes at a time will help limit the amount of back spasms and stiffness you may experience. 6. You may discontinue the use of ambulatory aids (cane, crutches, etc.) once your strength and confidence allow. 7. You may outboard motor inspector the shower and let water strike your incision when you arrive home at least once daily. Do not take a tub bath, sit in a hot tub or go into a swimming pool until after your first recheck in the office. SPECIAL CARE INSTRUCTIONS: VERY IMPORTANT TO READ AND REVIEW A. Your surgical incision has been closed with a cosmetic suture under the skin that will dissolve in about 6 weeks. In 14 days, you can use a pair of clean scissors and cut the suture that is left outside of the skin at the ends of your incision. 1. The small skin tapes can be removed 7 days after surgery if they have not fallen off by that point. 2. You may keep the wound open to air as much as possible to promote healing after post-op day number 5 unless told otherwise by your doctor. 3. If you think the wound looks like it is becoming infected (redness or worsening drainage) and/or you are experiencing fever, chill or worsening back pain and muscle spasms, contact the office so that we may evaluate you as soon as possible. B. Complications are uncommon, but please contact us if you have any signs or symptoms of: 1. wound infection (fever higher than 102.5 degrees F, redness, separation of wound, drainage, or increasing pain from the incision) 2. blood clots in legs (pain, swelling, redness and warmth in legs) 3. urinary tract infection (fever higher than 102.5 degrees F, burning upon urination or increased frequency of urination) 4. nerve problems (inability to walk on your toes or heels, numbness, loss of bowel or bladder control) 5. any other symptoms that concern you C. Please call the office at if you have any concerns or questions about your operation or recovery. D. No smoking! Smoking drastically decreases the chance of a solid fusion. E. Do not take any anti-inflammatory medications (Indocin, Advil, Motrin, Aspirin, Naprosyn, etc.) as these may inhibit the chance of a solid fusion. Tylenol is okay to take for pain. MANAGING PAIN AFTER SPINAL SURGERY 1. Narcotic medication is intended for short-term use and will be provided for surgical pain. Surgical pain usually lasts for a period of 4-6 weeks. Narcotic medication includes Percocet, Vicodin, Darvocet, Tylenol #3 or Lortab. 2. Longer-term pain is more appropriately treated with non-narcotic medication such as Tylenol ES. 3. Muscle spasm is not appropriately treated with narcotics. Muscle relaxers such as Soma, Flexeril or Skelaxin can be used along with Tylenol ES. 4. Remember that we all live with some "aches and pains". This is not unusual or uncommon after an injury or as we get older. a. Back pain is expected and may include muscle spasms for 4 to 6 weeks after surgery. The pain should gradually improve. If the pain worsens for no apparent reason, please contact the office. b. Intermittent leg pain may also be experienced and should not be concerned about unless it worsens for no apparent reason. If so, please contact the office. 5. We will provide appropriate medication within the normal guidelines of their prescribed use. We will also be very cautious and aware of potential abuse and extended duration of patients' medication needs. a. Pain medications are for your comfort and to assist with sleep and rest so that the tissue can heal. They are not provided in order to return to normal activity and should not be used through the day. To do so or worsening pain at night can result from ongoing tissue damage and development of tolerance to the prescribed medicine. 6. Please allow 2-3 days to process refills. Prescriptions will not be mailed but must be picked up at the office. FOLLOW UP VISIT: Keep your scheduled follow-up appointment. Any questions, please call the office at . Pending Studies at Discharge: No Stand-Alone Forms: My [employer], Smoking Cessation Medications and DC Order Prescriptions: New hydrocodone-acetaminophen 5-325 mg tablet See Rx Instructions .ROUTE .COMPLEX PRN (Reason: pain) Qty: 30 RF: 0 tramadol 50 mg tablet 50 mg PO Q6H PRN (Reason: pain, moderate) Qty: 30 RF: 0 ferrous sulfate 325 mg (65 mg iron) tablet 325 mg PO DAILY Qty: 30 RF: 0 docusate sodium [Colace] 100 mg capsule 100 mg PO BID Qty: 60 RF: 0 polyethylene glycol 3350 [Miralax] 17 gram/dose powder 8.5 g PO DAILY PRN (Reason: constipation) Qty: 119 RF: 0 Continued apixaban 2.5 mg tablet 2.5 mg PO Q12H Qty: 180 RF: 1 tramadol 50 mg tablet 50 mg PO Q8H PRN (Reason: pain) Qty: 180 RF: 2 pregabalin 150 mg capsule 150 mg PO TID Qty: 90 RF: 5 amlodipine 2.5 mg Tablet 2.5 mg PO QAM RF: 0 cyanocobalamin (vitamin B-12) 500 mcg tablet 500 mcg PO QAM RF: 0 lisinopril-hydrochlorothiazide 10-12.5 mg tablet 1 tab PO QAM RF: 0 B Complex Plus Vitamin C [id number] mg capsule 1 cap PO QAM RF: 0 cholecalciferol (vitamin D3) 50 mcg (2,000 unit) tablet 50 mcg PO QAM RF: 0 Discharge Orders: Discharge Order (Routine); Ordered 05/19/21 Ordered By: Brandon Ramires Admission Data Admit Date/Time: 05/16/21 14:37 Attending Provider: Brandon Ramires Admit Provider: Brandon Ramires Primary Care Provider: Bijan Hernandez Other Providers: Cristian Paulson
[2021-05-19] MEDS: traMADol HCL 50 MG TABLET PO PRN (08:36)
[2021-05-19] MEDS: CYANOCOBALAMIN (B-12) 500 MCG TABLET PO SCH (08:38)
[2021-05-19] MEDS: CHOLECALCIFEROL 1,000 UNITS 25 MCG TAB PO SCH (08:38)
[2021-05-19] MEDS: VITAMIN B COMPLEX TAB PO SCH (08:38)
[2021-05-19] MEDS: ASCORBIC ACID 500 MG TAB PO SCH (08:39)
[2021-05-19] MEDS: PREGABALIN 150 MG CAP PO SCH (08:41)
[2021-05-19] MEDS: dexAMETHasone 6 MG in SYRINGE 0 ML IV SCH (08:42)
[2021-05-19] MEDS ORDERED: LISINOPRIL/HCTZ 10/12.5MG TAB PO SCH (09:00)
[2021-05-19] MEDS ORDERED: amLODIPine BESYLATE 5 MG TAB PO SCH (09:00)
== END 2021-05-19 12:00 | disposition home or self-care (01) | DRG 454 ==
LOC: ASU 09:17 → 3E 14:37
DX: Z95.828 Presence of other vascular implants and grafts; Z88.5 Allergy status to narcotic agent; Z87.442 Personal history of urinary calculi; M19.90 Unspecified osteoarthritis, unspecified site; D72.829 Elevated white blood cell count, unspecified; Z68.41 Body mass index [BMI] 40.0-44.9, adult; Z86.711 Personal history of pulmonary embolism; M48.062 Spinal stenosis, lumbar region with neurogenic claudication; I27.20 Pulmonary hypertension, unspecified; Z98.1 Arthrodesis status; N18.32 Chronic kidney disease, stage 3b; I95.9 Hypotension, unspecified; G47.33 Obstructive sleep apnea (adult) (pediatric); Z87.448 Personal history of other diseases of urinary system; D62 Acute posthemorrhagic anemia; I12.9 Hypertensive chronic kidney disease with stage 1 through stage 4 chronic kidney disease, or unspecified chronic kidney disease

== ENCOUNTER 2024-11-11 10:46 | Observation (INO) ==
--- NOTE | 2024-10-28 13:29 | PAT Medication Instructions ---
Medication Instructions Date of Service October 28, 2024 Home Medications Medication Instructions Recorded cholecalciferol (vitamin D3) 50 50 mcg PO QAM #90 tabs 07/04/ mcg (2,000 unit) tablet pregabalin 150 mg capsule 150 mg PO TID #90 caps 06/30/24 tramadol 50 mg tablet 50 mg PO TID PRN pain, moderate 06/30/24 #90 tabs cyanocobalamin (vitamin B-12) 500 mcg tablet 500 mcg PO QAM vitamin B comp and C no.3 15 mg-10 mg-50 mg-5 mg-300 mg capsule (B Complex Plus Vitamin C) 1 cap PO QAM cholecalciferol (vitamin D3) 50 mcg (2,000 unit) tablet 50 mcg PO QAM pregabalin 150 mg capsule 150 mg PO TID tramadol 50 mg tablet 50 mg PO TID PRN pain, moderate amlodipine 2.5 mg tablet 2.5 mg PO QAM lisinopril 20 mg tablet 20 mg PO QAM DO NOT take the morning of surgery cyanocobalamin (vitamin B-12) 500 mcg tablet 500 mcg PO QAM vitamin B comp and C no.3 15 mg-10 mg-50 mg-5 mg-300 mg capsule (B Complex Plus Vitamin C) 1 cap PO QAM cholecalciferol (vitamin D3) 50 mcg (2,000 unit) tablet 50 mcg PO QAM lisinopril 20 mg tablet 20 mg PO QAM . Take morning of surgery With a small sip of water, OTHERWISE NOTHING TO EAT OR DRINK AFTER MIDNIGHT: pregabalin 150 mg capsule 150 mg PO TID tramadol 50 mg tablet 50 mg PO TID PRN pain, moderate (if needed) amlodipine 2.5 mg tablet 2.5 mg PO QAM Take evening before surgery pregabalin 150 mg capsule 150 mg PO TID tramadol 50 mg tablet 50 mg PO TID PRN pain, moderate (if needed) Other Notes If you have any questions please call us at [phone] or [phone] or [phone] or [phone]
--- NOTE | 2024-10-31 10:15 | Anesthesiology Consultation ---
Date of Service October 31, 2024 Assessment & Plan (1) Encounter for pre-operative examination: - Infectious disease screening: Per assessment on 10/31/24- No known recent infectious disease contacts or current infectious disease symptoms. - S/P L2-S1 revision Decompression/Fusion (05/10/21): Grade 1 view, Glidescope#3, ETT 7.5, atraumatic, [facility] - Pending: * Unable to void at [facility]- will be taking preop UA to [facility] lab in near future per PAT tech. Awaiting surgeon-ordered preop UA ([facility] lab). * Awaiting surgeon-ordered PCP preop evaluation ([facility]UL[facility], appt 11/05). Chart Review Chart Review: Patient seen in Pre Admission Testing Teaching & Discussion Pre-Anesthesia Teaching/Discussion Notes: Instructed NPO after midnight before surgery,except medications with 15 cc of water. Medication instructions provided according to the [facility] guidelines. History Surgery Operation Date: 11/11/24 11:05 Proposed Procedures p Decompression T12-L1, T11-L1 Fusion Connecting to Existing Hardware, Spinal Cord Monitoring - Brandon Ramires, Height/Weight Height: 5 ft 10.5 in Weight: 124 kg Allergies Allergy/AdvReac Type Severity Reaction Status Date / Time oxycodone [From OxyContin] Allergy Severe respiratory Verified 10/28/24 12:00 depression glycopyrrolate AdvReac Severe severe Verified 10/28/24 12:00 headache Medications Home Medications Medication Instructions Recorded Confirmed Last Taken cyanocobalamin (vitamin B-12) 500 500 mcg PO QAM 04/27/21 10/28/24 05/16/21 08:00 mcg tablet vitamin B comp and C no.3 15 mg-10 1 cap PO QAM 04/27/21 10/28/24 05/16/21 08:00 mg-50 mg-5 mg-300 mg capsule (B Complex Plus Vitamin C) cholecalciferol (vitamin D3) 50 50 mcg PO QAM #90 tabs 07/04/22 10/28/24 Unknown mcg (2,000 unit) tablet pregabalin 150 mg capsule 150 mg PO TID #90 caps 06/30/24 10/28/24 Unknown tramadol 50 mg tablet 50 mg PO TID PRN pain, moderate 05/12/25 09/09/25 Unknown #90 tabs amlodipine 2.5 mg tablet 2.5 mg PO QAM 10/28/24 10/28/24 Unknown lisinopril 20 mg tablet 20 mg PO QAM 10/28/24 10/28/24 Unknown Past Medical History Medical History AAA (abdominal aortic aneurysm) Per renal ultrasound 12/22/20- "proximal abdominal aorta is ectatic/borderline dilated with AP diameter of 3.0cm" History of kidney stones no surgical intervention History of pulmonary embolism Dx 04/2020; 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 no current issues Hypercoagulability work up was unremarkable HTN (hypertension) Hyperhidrosis Lumbosacral radiculopathy Nephrolithiasis Osteoarthritis Perinephric hematoma Hx perinephric hematoma 03/23 Eliquis 04/2020 (days after starting Eliquis for PE) treated at [facility], no surgical intervention Positional sleep apnea Mild, No device indicated per patient Pulmonary hypertension Pulm HTN noted on 05/04/20 ECHO (PASP >39mmg) (diagnosed with PE at the time); repeat ECHO 11/23/20 - "cannot esimated RVSP due to insufficient tricuspid re gurgitant jet" Stage 3b chronic kidney disease Tinnitus chronic Exercise / Class Metabolic Activity III < 4 Walking/Shop/Light housework (uses cane PRN) Past Family History Family History Father Diabetes oral agent Stroke, Onset Age: 50 Kidney disease age 60 Hypertension Sister Breast cancer, Onset Age: 60 Brother Cancer Hypertension Diabetes diet controlled Other No family history of adverse response to anesthesia Denies family history of Ovarian cancer Prostate cancer Deep vein thrombosis Dyslipidemia Cerebral aneurysm Alzheimer disease Bipolar disorder Clotting disorder Dementia Depression Heart disease Myocardial infarction Lung cancer Colorectal cancer Pulmonary embolism Colonic polyp Asthma Cystic kidney disease Past Surgical History Surgical History History of ankle surgery Rt History of back surgery Multiple (total of 5 lumbar surgeries) L2-S1 revision Decompression/Fusion (05/10/21): Grade 1 view, Glidescope#3, ETT 7.5, atraumatic, [facility] History of colonoscopy History of removal of cyst x2 cyst removal from mid back Hx of fusion of cervical spine Most recent cervical surgery: C7-T2 fusion (total of 3 cervical fusion surgeries; C3-T2 fusion total) S/P epidural steroid injection S/P IVC filter 05/07/20 Dr. Millie Pandey- Infrarenal IVC filter (has since been removed) Past Anesthesia History No Hx of Anesthesia Complications and No Family Hx of Anesthesia Complications History of PONV No Hx of PONV and No Hx of Motion Sickness Social History Smoking Status: Never smoker Do You Dip or Chew Tobacco: No Hx Alcohol Use: No Hx Substance Use: No substance use type: does not use Review of Systems Mild ZAPATA, stable. Patient denies chest pain, shortness of breath, fever, chills, cough, wheezing, palpitations. Physical Exam Vital Signs BP 139/75 P 82 TEMP 97.9 SP02 95%RA RESP 16 Physical Decreased cervical extension range of motion. Full TMJ range of motion. TMD > 3.5 finger breaths Mallampati Score II Dentition: upper left bridge, several crowns (including upper front) Lungs: clear throughout to auscultation Cardiac: regular rate and rhythm, no murmurs noted Spine: normal Carotid arteries: negative bruit Extremities: no LE edema Lab Results Anesthesia Preop Results Results Anesthesia Widget: WBC 7.35 K/ul (4.8-10.8) 10/31/24 Hgb 15.2 g/dl (14.0-18.0) 10/31/24 Hct 45.8 % (42.0-52.0) 10/31/24 Plt 206 K/uL (130-400) 10/31/24 Na 140 mmol/L (136-145) 10/06/24 K 4.4 mmol/L (3.5-5.1) 10/06/24 Cl 103 mmol/L (98-107) 10/06/24 CO2 31 mmol/L (21-32) 10/06/24 BUN 20 mg/dl (6-23) 10/06/24 Creat 1.30 mg/dl (0.6-1.4) 10/06/24 Glucose Level 120 mg/dl (70-99(Fasting)) H 10/06/24 PT 10.7 Seconds (9.0-12.0) 10/31/24 PTT 30 Seconds (21-31) 10/31/24 INR 1.0 (0.9-1.1) 10/31/24 Blood Type O Positive 10/31/24 Antibody Screen NEGATIVE 10/31/24 Testing Electrocardiogram Date: 10/31/24 NSR with sinus arrhythmia. 72bpm. unconfirmed report. Chest X-Ray Date: 10/31/24 FINDINGS: Heart size and pulmonary vasculature are normal. No consolidation or pleural effusion. Cervical metallic fusion again seen. IMPRESSION: No acute findings. Echocardiogram Date: 11/23/20 EF: 55-60% LV Function: normal RWMA: + none Other Findings: no LVH Valvular Disease: + no significant valvular disease Cannot estimate RVSP due to insufficient tricuspid regurgitant jet.
[~2024-11-11 10:46] MED LIST changes: -ACETAMINOPHEN 500 MG TAB PO SCH; -CeleBREX 200 MG CAP PO SCH; +DEXAMETHASONE SOD INJ 4 MG/ML VIAL ONE; -GABAPENTIN 300 MG CAP PO SCH; +GLYCOPYRROLATE 0.2 MG/ML VIAL ONE; +LIDOCAINE 2% 2 ML VIAL/AMP(20MG/ML) INFIL ONE; -LR 15ML/HR IV SCH; +MIDAZOLAM HCL 1 MG/ML 2ML VIAL ONE; +ONDANSETRON INJ 2 MG/ML 2 ML VIAL ONE; +PROPOFOL IV EMULSION 10 MG/ML 20 ML VIAL IV ONE; +ROCURONIUM BROMIDE 10 MG/ML 5 ML VIAL IV ONE; +SUGAMMADEX SODIUM 200 MG/2 ML VIAL IV ONE
[2024-11-11] MEDS: ACETAMINOPHEN 500 MG TAB PO SCH (11:12)
[2024-11-11] MEDS: GABAPENTIN 300 MG CAP PO SCH (11:12)
[2024-11-11] MEDS: CeleBREX 200 MG CAP PO SCH (11:12)
[2024-11-11] MEDS: LR 60ML/HR IV SCH (11:13)
[2024-11-11] MEDS: LR 15ML/HR IV SCH (11:13)
--- NOTE | 2024-11-11 11:43 | History & Physical Bridge Note ---
Date of Service November 11, 2024 History & Physical Bridge Note I have examined the patient, reviewed the History & Physical and in the interval since the performance of the History & Physical I have noted the following changes of clinical significance: no changes noted
--- NOTE | 2024-11-11 11:45 | History & Physical Report ---
Date of Service November 11, 2024 Assessment & Plan (1) Other spondylosis with radiculopathy, lumbar region: Plan: Decompression T12-L1, T11-L1 fusion connecting to existing hardware. History of Present Illness Chief Complaint: Back and leg pain Primary Care Provider: MAIDA Najera This is a 74-year-old male well-known to me the presents with chronic persistent back and leg pain after failing course of nonoperative care is here for surgical intervention. Allergies Allergy/AdvReac Type Severity Reaction Status Date / Time oxycodone [From OxyContin] Allergy Severe respiratory Verified 11/11/24 11:10 depression glycopyrrolate AdvReac Severe severe Verified 11/11/24 11:10 headache Home Medications Medication Instructions Recorded Confirmed Type cyanocobalamin (vitamin B-12) 500 500 mcg PO QAM 04/27/21 11/11/24 History mcg tablet vitamin B comp and C no.3 15 mg-10 1 cap PO QAM 04/27/21 11/11/24 History mg-50 mg-5 mg-300 mg capsule (B Complex Plus Vitamin C) cholecalciferol (vitamin D3) 50 50 mcg PO QAM #90 tabs 07/04/22 11/11/24 Rx mcg (2,000 unit) tablet pregabalin 150 mg capsule 150 mg PO TID #90 caps 06/30/24 11/11/24 Rx tramadol 50 mg tablet 50 mg PO TID PRN pain, moderate 06/30/24 11/11/24 Rx #90 tabs amlodipine 2.5 mg tablet 2.5 mg PO QAM 10/28/24 11/11/24 History lisinopril 20 mg tablet 20 mg PO QAM 10/28/24 11/11/24 History Past Med/Surg History Problem List (Updated 11/11/24 @ 11:43 by Brandon Ramires DO) Other spondylosis with radiculopathy, lumbar region Chronic radicular lumbar pain Lumbar radiculopathy, chronic Vitamin B12 deficiency Vitamin D deficiency Chronic kidney disease, stage 3a Encounter for pre-operative examination Hypertension, benign (Chronic) Cervical stenosis of spinal canal (Chronic 08/18/13) Medical History Nephrolithiasis Hyperhidrosis Pulmonary hypertension History of pulmonary embolism AAA (abdominal aortic aneurysm) Perinephric hematoma Osteoarthritis History of kidney stones Tinnitus HTN (hypertension) Lumbosacral radiculopathy Stage 3b chronic kidney disease Positional sleep apnea Surgical History S/P epidural steroid injection Hx of fusion of cervical spine History of back surgery History of removal of cyst History of ankle surgery History of colonoscopy S/P IVC filter Family History Father Diabetes Stroke, Onset Age: 50 Kidney disease Hypertension Sister Breast cancer, Onset Age: 60 Brother Cancer Hypertension Diabetes Other No family history of adverse response to anesthesia Denies family history of Ovarian cancer Prostate cancer Deep vein thrombosis Dyslipidemia Cerebral aneurysm Alzheimer disease Bipolar disorder Clotting disorder Dementia Depression Heart disease Myocardial infarction Lung cancer Colorectal cancer Pulmonary embolism Colonic polyp Asthma Cystic kidney disease Social History Smoking Status: Never smoker Second Hand Exposure: No; Do You Dip or Chew Tobacco: No; Tobacco Cessation Education Requested by Patient: No Hx Alcohol Use: No Hx Substance Use: No Preferred Language: Setswana Communication Ability: Effective Visual Impairment: Limited Supervisor Sheet Manufacturing Required: No Beliefs That Will Affect Care: None marital status: / Current Living Situation: Family Current Living Situation Comment: daughter is currently living with patient current occupational status: retired 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 [employer] How many Children do You have: 3 Other Information That Helps Us Care for You: No Feels Safe at Home: Yes Safety Concerns: Feels Safe At This Time Childhood Exposure to Second-Hand Smoke: No Diet: regular caffeine: Yes during the past year weight has: remained stable Dental Care, Regularly: Yes Physical Activity Frequency: Daily Physical Activity Frequency Comment: Stationary bike Seatbelt Use: always Sunscreen Use: No Do you think of yourself as: straight/heterosexual Gender Identity: Male Assistive Devices: Brace/Splint/Immobilizer and Glasses Assistive Devices Comment: walking stick - back brace PRN Physical Exam Physical Exam: Patient is alert and oriented Heart regular rhythm Lungs clear Results & Data Results & Data Vital Signs (Past 12 Hours) Vital Signs Temp Pulse Resp BP Pulse Ox O2 Del Method 11/11/24 11:08 36.7 C 83 18 116/75 97 Room Air
[2024-11-11] MEDS ORDERED: ONDANSETRON INJ 2 MG/ML 2 ML VIAL IV PRN ×2 (12:06→15:49)
[2024-11-11] MEDS ORDERED: ATROPINE SULFATE 0.1 MG/ML 10ML SYR IV PRN (12:06)
[2024-11-11] MEDS ORDERED: PROMETHAZINE HCL 6.25 MG in SODIUM CHLORIDE 0.9% 50 ML IV PRN (12:06)
[2024-11-11] MEDS ORDERED: HYDROmorphone INJ 2 MG/ML SYR/VIAL IV PRN (12:06)
[2024-11-11] MEDS ORDERED: ROCURONIUM BROMIDE 10 MG/ML 5 ML VIAL IV ONE (12:31)
[2024-11-11] MEDS: BUPIVACAINE/EPINEPHRINE 0.25% 1:200,000 30 ML VIAL ONE (12:54)
[2024-11-11] MEDS: ceFAZolin 330 MG/ML 1 GM VIAL ONE ×2 (12:56→13:59)
[2024-11-11] MEDS: FLOSEAL HEMOSTATIC MATRIX 10ML TOP ONE (14:02)
--- NOTE | 2024-11-11 14:12 | Operative Report ---
Post Operative Report Pre & Post Diagnosis Operation Date: 11/11/24 12:15 Pre-Op Diagnosis: #1 thoracic Myelopathy #2 lumbar spondylosis Post-Op Diagnosis: Same I identified the patient and participated in the time-out.: Yes Procedure Operation Date: 11/11/24 12:15 Actual Procedures #1 lumbar decompression bilaterally facetectomies and foraminotomies T12-L1 L1- L2. #2 posterior spinal fusion T11-L2. #3 placement of posterior instrumentation T11-L4 1 with connectors at L2-L3. #4 placement of Proteus combined with Koros in the posterolateral gutters T11-L2. #5 application of versa wrap of the exposed dura. Surgeon Brandon Ramires, DO Sales Representative [employer] Sherice Virgen Estimated Blood Loss 450 Findings See Below Patient is 5 foot 10 weighing over 123 kg with a BMI in excess of 38. The patient's body was did contribute to significant technical difficulty with positioning exposure and the procedure itself and at least 50% increased operative time. Specimens None Indications This is a 74-year-old male who presents publish diagnosis of failing course of nonoperative care is here for surgical invention. Description of Procedure Patient was met with identified informed consent obtained. Patient was then taken operative suite underwent patient placed in a prone position on the Jose Luis table chest padded bolsters. All bony prominences well-padded eyes inspected to ensure no external pressure placed upon the. This point the thoracolumbar spine was prepped and draped in sterile fashion. Sharp dissection with the assistance of Bovie cautery performed down to and exposing the lamina transverse processes of T11-T12 L1 and instrumentation at L2-L3. Then proceeded to form a complete laminectomy of L1 with bilateral medial facetectomies and foraminotomies addressing severe neural compression followed by laminectomy of T12 with bilateral medial facetectomies. Pedicle screws were then placed in T11 T12-L1 bilaterally with assistance of fluoroscopy and a connector attached to the L2-L3 previously placed sana. Appropriate size rods were then contoured and locked into position bilaterally. The transverse processes of T11-T12 L1-L2 burred to subcortical bleeding bone. Koros combined with Proteus placed in posterior gutters. Burst wrap placed of exposed dura. 15 round VALARIE drain inserted. The incision was then closed with 1 Vicryl the fascia 2-0 Vicryl subcutaneously and 4-0 Monocryl for final skin closure. Steri-Strips sterile dressing placed. Patient waken taken PACU stable condition. Please note Sherice Virgen was present of the entire procedure and on the patient positioning complex portion of the surgery and final skin closure. I attest to the content of the Intraoperative Record and any orders documented therein. Any exceptions are noted below.
--- NOTE | 2024-11-11 14:19 | Fluoroscopy Report ---
FL lumbar spine 2-3V CLINICAL HISTORY: T12-L1 DECOMP, T11-L1 FUSION COMPARISON STUDY: 05/16/2021 FLUOROSCOPY TIME: 41 seconds FLUOROSCOPY IMAGES: 3 EXPOSURE DOSE: 24 mGy FINDINGS: Fluoroscopy was provided for lower thoracic and lumbar surgery. IMPRESSION: Intraoperative fluoroscopy. ACT 112: Negative or not required by law. Electronically signed by: Mao Zieglre M.D. 11/11/2024 2:18 PM
--- NOTE | 2024-11-11 15:05 | Anesthesiology Progress Note ---
Date of Service November 11, 2024 Anesthesia Post Procedure Vital Signs Vital Signs: Temp Pulse Pulse Resp BP BP Pulse Ox 11/11/24 14:50 95 H 12 100/64 100 11/11/24 14:40 84 12 97/73 L 95 11/11/24 14:30 36.1 C L 91 H 14 91/65 L 95 11/11/24 11:08 36.7 C 83 18 116/75 97 O2 Del Method O2 Flow Rate 11/11/24 14:50 Oxymask 4 11/11/24 14:40 Oxymask 6 11/11/24 14:30 Oxymask 6 11/11/24 11:08 Room Air Transfer of Care Handoff Completed per policy Notes Mental Status: alert / awake / arousable Patient Amnestic to Procedure: Yes Nausea / Vomiting: adequately controlled Pain: adequately controlled Airway Patency, RR, SpO2: stable & adequate BP & HR: stable & adequate Hydration State: stable & adequate Anesthetic Complications: no major complications apparent
[2024-11-11] MEDS ORDERED: NALOXONE HCL 0.4 MG/1 ML VIAL/CARP IV PRN (15:49)
[2024-11-11] MEDS ORDERED: ACETAMINOPHEN 1,000 MG/100 ML VIAL IV PRN (15:49)
[2024-11-11] MEDS ORDERED: ACETAMINOPHEN 500 MG TAB PO PRN (15:49)
[2024-11-11] MEDS ORDERED: DO NOT ADMINISTER PNEUMOCOCCAL VACCINE PRN (15:49)
[2024-11-11] MEDS ORDERED: ALUMINUM/MAGNESIUM SUSP 30 ML UDC PO PRN (15:49)
[2024-11-11] MEDS ORDERED: DO NOT ADMINISTER FLU VACCINE PRN (15:49)
[2024-11-11] MEDS ORDERED: PROMETHAZINE 12.5 MG/50.5 ML BAG IV PRN (15:49)
[2024-11-11] MEDS ORDERED: diphenhydrAMINE Capsule 25 MG CAP PO PRN (15:49)
[2024-11-11] MEDS ORDERED: HYDROmorphone INJ 1 MG/ML SYRINGE IV PRN (15:49)
[2024-11-11] MEDS ORDERED: HYDROmorphone INJ 0.5 MG/0.5 ML SYR IV PRN (15:49)
[2024-11-11] MEDS ORDERED: FAMOTIDINE 20 MG TAB PO PRN (15:49)
[2024-11-11] MEDS ORDERED: MAGNESIUM HYDROXIDE SUSP 30 ML UDC PO PRN (15:49)
[2024-11-11] MEDS ORDERED: ONDANSETRON 4 MG OD TAB PO PRN (15:49)
[2024-11-11] MEDS ORDERED: LORazepam 0.5 MG TAB PO PRN (15:49)
[2024-11-11] MEDS ORDERED: METOCLOPRAMIDE HCL INJ 5 MG/ML 2 ML VIAL IV PRN (15:49)
[2024-11-11] MEDS ORDERED: SOD PHOSPHATE/SOD BIPHOSPHATE ENEMA 132 ML BTL PR PRN (15:49)
[2024-11-11] MEDS: LACTATED RINGER'S 1,000 ML IV SCH (16:00)
--- NOTE | 2024-11-11 18:03 | Hospitalist Progress Note ---
Date of Service November 11, 2024 Assessment & Plan (1) Hypertension, benign: (2) Chronic kidney disease, stage 3a: Plan #Status post lumbar surgerypain control as ordered per orthopedics (I did order an now dose of his hydrocodone per patient request). Otherwise as per orthopedics. #Hypertensionasymptomatic, blood pressure in good range. Hold lisinopril for now given 450 mL of estimated blood lossonce it is clear that his hemodynamics and creatinine are stable, resume lisinopril. Continue amlodipine for now. #CKDbaseline CKD 3A. Follow-up creatinine tomorrow postop. Avoid nephrotoxic meds if at all possible. #DVT prophylaxisper orthopedics (SCDs) Admission and Anticipated Discharge Date Admission Date: November 11, 2024 Subjective Postop from spine surgery. Other than some back soreness (requests oral pain medicationordered as soon as we are done talking) he has no acute complaints. Preoperative records reviewed. Review of Systems Review of Systems: All systems reviewed & are unremarkable except as noted in HPI & below Physical Exam Physical Exam: In general he is awake alert oriented pleasant no distress. HEENT normocephalic atraumatic mucous membranes moist. Breathing unlabored no accessory muscle use good effort. Skin without rashes pallor or icterus. Neuro without focal deficits. Results & Data Results & Data Vital Signs (Past 12 Hours) Vital Signs Temp Pulse Pulse Resp BP BP Pulse Ox 11/11/24 17:13 97.9 F 90 16 126/82 94 11/11/24 16:32 97.3 F L 89 18 118/76 96 11/11/24 15:56 97.5 F L 63 17 113/72 95 11/11/24 15:25 97.5 F L 98 H 19 129/74 97 11/11/24 15:15 87 12 120/80 96 11/11/24 15:00 97.7 F 84 12 116/81 98 11/11/24 14:50 95 H 12 100/64 100 11/11/24 14:40 84 12 97/73 L 95 11/11/24 14:30 97.0 F L 91 H 14 91/65 L 95 11/11/24 11:08 98.1 F 83 18 116/75 97 O2 Del Method O2 Flow Rate 11/11/24 17:13 Room Air 11/11/24 16:32 Room Air 11/11/24 15:56 Room Air 11/11/24 15:25 Room Air 11/11/24 15:15 Room Air 11/11/24 15:00 Room Air 11/11/24 14:50 Oxymask 4 11/11/24 14:40 Oxymask 6 11/11/24 14:30 Oxymask 6 11/11/24 11:08 Room Air PG Care Time/CCT Total # of Minutes Spent Total Time Spent with Patient: Total time spent is greater than 50% in coordination of care (as documented) at patient's floor/unit and/or counseling patient: Coding Level of Care Code 92570 SUB INP/OBS CARE 3/50MIN Diagnoses Hypertension, benign I10 Chronic kidney disease, stage 3a N18.31
[2024-11-11] MEDS: HYDROCODONE/ACETAMOPHEN 5/325MG TAB PO ONE (18:34)
[2024-11-11] MEDS: PREGABALIN 150 MG CAP PO SCH (22:01)
[2024-11-11] MEDS: DOCUSATE SODIUM/SENNA 50/8.6MG TAB PO SCH (22:02)
[2024-11-12] MEDS: POLYETHYLENE (MIRALAX) 17 GM PACK PO SCH (05:43)
[2024-11-12] MEDS: HYDROCODONE/ACETAMOPHEN 5/325MG TAB PO PRN (05:46)
[2024-11-12 06:20] LABS: Hematocrit (blood only) 39.1 % (42.0-52.0); Hemoglobin 13.2 g/dl (14.0-18.0); Immature Granulocytes # (auto) 0.07 K/uL (0.01-0.20); Immature Granulocytes % (auto) 0.5 %; Mean Corpuscular Hemoglobin 30.6 pg (25.0-34.0); Mean Corpuscular Volume 90.5 fL (80.0-100.0); Platelet Count 246 K/uL (130-400); RDW Standard Deviation 44.0 fL (36.4-46.3); Red Blood Count 4.32 M/uL (4.70-6.10); White Blood Count 15.14 K/ul (4.8-10.8)
[2024-11-12 06:41] LABS: Anion Gap 6.0 (3-11); Blood Urea Nitrogen 21.0 mg/dl (6-23); Calcium 8.7 mg/dl (8.6-10.3); Carbon Dioxide 30.0 mmol/L (21-32); Chloride 101.0 mmol/L (98-107); Creatinine Clr Calc Pharmacy 61.4 ml/min; Glucose 143.0 mg/dl (70-99(Fasting)); Potassium 5.0 mmol/L (3.5-5.1); Sodium 137.0 mmol/L (136-145)
[2024-11-12] MEDS: dexAMETHasone 8 MG in SYRINGE 0 ML IV SCH (08:05)
[2024-11-12] MEDS: VITAMIN B COMPLEX TAB PO SCH (08:06)
[2024-11-12] MEDS: CYANOCOBALAMIN (B-12) 500 MCG TABLET PO SCH (08:06)
[2024-11-12] MEDS: ASCORBIC ACID 500 MG TAB PO SCH (08:06)
[2024-11-12] MEDS: CHOLECALCIFEROL 25 MCG (1000 UNITS) TAB PO SCH (08:06)
[2024-11-12] MEDS ORDERED: NON-FORMULARY MEDICATION (Vitamin B Comp And C No.3 [B Complex Plus Vitamin C] 15-10-50-5- PO SCH (09:00)
--- NOTE | 2024-11-12 10:47 | Orthopedic Progress Note ---
Date of Service November 12, 2024 Assessment & Plan (1) Other spondylosis with radiculopathy, lumbar region: Plan: At this time we will continue physical therapy monitor his VALARIE operatively discharge home next few days. Admission and Anticipated Discharge Date Admission Date: November 11, 2024 Subjective Patient's back pain is controlled leg symptoms markedly improved. Physical Exam Physical Exam: Patient is in the chair at the bedside. Comfortable. Good strength testing. Results & Data Vital Signs (Past 12 Hours) Vital Signs Temp Pulse Pulse Resp BP Pulse Ox O2 Del Method 11/12/24 07:52 36.7 C 96 H 18 106/68 92 Room Air 11/12/24 06:26 36.8 C 84 16 122/83 92 Room Air 11/12/24 02:21 36.7 C 95 H 16 109/62 91 Room Air Queries Orthopedic Spine Obesity: Yes
[2024-11-13 07:59] VITALS: RESP 18
--- NOTE | 2024-11-13 10:39 | Orthopedic Progress Note ---
Date of Service November 13, 2024 Assessment & Plan (1) Other spondylosis with radiculopathy, lumbar region: Plan: At this point we will continue physical therapy monitor his VALARIE output anticipate discharge home tomorrow. Admission and Anticipated Discharge Date Admission Date: November 11, 2024 Subjective Pain controlled leg symptoms improved. Tolerating physical therapy. Physical Exam Physical Exam: Patient is here at the bedside. Is concerning to testing. He is comfortable. Results & Data Vital Signs (Past 12 Hours) Vital Signs Temp Pulse Resp BP Pulse Ox O2 Del Method 11/13/24 07:58 36.4 C L 71 18 123/77 95 Room Air 11/13/24 03:00 36.5 C 79 16 139/87 94 Room Air Queries Orthopedic Spine Obesity: Yes
[2024-11-14 08:17] VITALS: BP 130/86; PULSE 74; TEMP 98.1; O2SAT 97
--- NOTE | 2024-11-14 10:30 | Discharge Summary ---
Date of Service November 14, 2024 Admission HPI Per Admitting Provider This is a 74-year-old male well-known to me the presents with chronic persistent back and leg pain after failing course of nonoperative care is here for surgical intervention. Principal Diagnosis Thoracolumbar spondylosis with myelopathy Discharge Data Allergies Allergy/AdvReac Type Severity Reaction Status Date / Time oxycodone [From OxyContin] Allergy Severe respiratory Verified 11/11/24 11:10 depression glycopyrrolate AdvReac Severe severe Verified 11/11/24 11:10 headache Consultations 11/11/24 15:49 Consult Hospitalist Routine Procedures Performed Operation Date: 11/11/24 12:15 Actual Procedures p T12-L1 Decompression, T11-L1 Fusion Connecting to Existing Hardware(Not Applicable) - Brandon Ramires DO Ordered Studies 11/11/24 12:15 FL lumbar spine 2-3V Routine Hospital Course (1) Other spondylosis with radiculopathy, lumbar region: Patient is 1 thoracolumbar fusion trial resulting orthopedic for postoperative. Postop he progressed appropriately. VALARIE drain decreasing. Good strength testing. Subsidy discharged home. Discharge orders and instructions found in chart for further review. Total Time Total Time Spent Total Time Spent (In Minutes): 20 minutes Discharge Plan Discharge Items Patient Disposition: Home - Self-Care Reason For Visit: Thoracic Myelopathy Discharge Diagnosis: Thoracic myelopathy Activity: As commented below Non-emergency contact: Primary Care Provider Call non-emergency contact if: you have any medication questions Follow-up/Referrals: Sherice Barnes CRNP [Primary Care Provider] - 11/21/24 1:00 pm Diet: Regular Addtl Attending Provider Instructions: ACTIVITY RECOMMENDATIONS: SELF CARE INSTRUCTIONS AFTER THORACIC/LUMBAR FUSIONS 1. You may walk to your tolerance. It is good exercise for your legs and back. Expect some back and intermittent leg aches and pains. 2. You may perform "counter-top" level activities (make a sandwich, don with a project, etc.). 3. No bending or lifting of more than 10 pounds or back twisting of any nature (roll like a log when turning in bed). 4. You may ride in a car for 20-30 minutes at a time. No driving until after your first visit with your doctor. 5. Frequent changes of position and restricting sitting to 30 minutes at a time will help limit the amount of back spasms and stiffness you may experience. 6. You may discontinue the use of ambulatory aids (cane, crutches, etc.) once your strength and confidence allow. 7. You may glass vial bending conveyor feeder the shower and let water strike your incision when you arrive home at least once daily. Do not take a tub bath, sit in a hot tub or go into a swimming pool until after your first recheck in the office. 8. You may resume previous diet. SPECIAL CARE INSTRUCTIONS: VERY IMPORTANT TO READ AND REVIEW A. Your surgical incision has been closed with a cosmetic suture under the skin that will dissolve in about 6 weeks. In 14 days, you can use a pair of clean scissors and cut the suture that is left outside of the skin at the ends of your incision. 1. The small skin tapes can be removed 7 days after surgery if they have not fallen off by that point. 2. You may keep the wound open to air as much as possible to promote healing after post-op day number 5 unless told otherwise by your doctor. 3. If you think the wound looks like it is becoming infected (redness or worsening drainage) and/or you are experiencing fever, chill or worsening back pain and muscle spasms, contact the office so that we may evaluate you as soon as possible. B. Complications are uncommon, but please contact us if you have any signs or symptoms of: 1. wound infection (fever higher than 102.5 degrees F, redness, separation of wound, drainage, or increasing pain from the incision) 2. blood clots in legs (pain, swelling, redness and warmth in legs) 3. urinary tract infection (fever higher than 102.5 degrees F, burning upon urination or increased frequency of urination) 4. nerve problems (inability to walk on your toes or heels, numbness, loss of bowel or bladder control) 5. any other symptoms that concern you C. Please call the office at if you have any concerns or questions about your operation or recovery. D. No smoking! Smoking drastically decreases the chance of a solid fusion. E. Do not take any anti-inflammatory medications (Indocin, Advil, Motrin, Aspirin, Naprosyn, etc.) as these may inhibit the chance of a solid fusion. Tylenol is okay to take for pain. MANAGING PAIN AFTER SPINAL SURGERY 1. Narcotic medication is intended for short-term use and will be provided for surgical pain. Surgical pain usually lasts for a period of 4-6 weeks. Narcotic medication includes Percocet, Vicodin, Darvocet, Tylenol #3 or Lortab. 2. Longer-term pain is more appropriately treated with non-narcotic medication such as Tylenol ES. 3. Muscle spasm is not appropriately treated with narcotics. Muscle relaxers such as Soma, Flexeril or Skelaxin can be used along with Tylenol ES. 4. Remember that we all live with some "aches and pains". This is not unusual or uncommon after an injury or as we get older. a. Back pain is expected and may include muscle spasms for 4 to 6 weeks after surgery. The pain should gradually improve. If the pain worsens for no apparent reason, please contact the office. b. Intermittent leg pain may also be experienced and should not be concerned about unless it worsens for no apparent reason. If so, please contact the office. 5. We will provide appropriate medication within the normal guidelines of their prescribed use. We will also be very cautious and aware of potential abuse and extended duration of patients' medication needs. a. Pain medications are for your comfort and to assist with sleep and rest so that the tissue can heal. They are not provided in order to return to normal activity and should not be used through the day. To do so or worsening pain at night can result from ongoing tissue damage and development of tolerance to the prescribed medicine. 6. Please allow 2-3 days to process refills. Prescriptions will not be mailed but must be picked up at the office. FOLLOW UP VISIT: Keep your scheduled follow-up appointment. Any questions, please call the office at . Pending Studies at Discharge: No Stand-Alone Forms: [employer], Smoking Cessation Medications and DC Order Prescriptions: New hydrocodone-acetaminophen 5-325 mg tablet 1 tab PO Q6H PRN (Reason: pain) Qty: 30 0RF tramadol 50 mg tablet 50 mg PO Q6H PRN (Reason: pain, moderate) Qty: 30 0RF Continued cholecalciferol (vitamin D3) 50 mcg (2,000 unit) tablet 50 mcg PO QAM Qty: 90 1RF pregabalin 150 mg capsule 150 mg PO TID Qty: 90 5RF cyanocobalamin (vitamin B-12) 500 mcg tablet 500 mcg PO QAM B Complex Plus Vitamin C [id number] mg capsule 1 cap PO QAM lisinopril 20 mg tablet 20 mg PO QAM Rx Instructions: TAKE 1 TABLET BY MOUTH EVERY DAY amlodipine 2.5 mg tablet 2.5 mg PO QAM Rx Instructions: TAKE 1 TABLET BY MOUTH EVERY DAY Discontinued tramadol 50 mg tablet 50 mg PO TID PRN (Reason: pain, moderate) Qty: 90 5RF Discharge Orders: Discharge Order (Routine); Ordered 11/14/24 Ordered By: Brandon Ramires Admission Data Admit Date/Time: 11/11/24 15:46 Attending Provider: Brandon Ramires Admit Provider: Brandon Ramires Primary Care Provider: Sherice Barnse Other Providers: [facility]; [facility]
== END 2024-11-14 11:45 | disposition home health service (06) | DRG 448 ==
LOC: ASU 10:46 → INTOOBSV 15:46 → 3E 15:46